=== PATIENT | female | born 1975 | race Two or more races ===

== ENCOUNTER 2020-11-03 15:48 | Emergency (ER) | payer OTHER ==
[~2020-11-03] VITALS: Ht 157.5 cm; Wt 52.2 kg
[2020-11-03] MEDS ORDERED: CANDESARTAN CILE8 M1 PO (16:13)
[2020-11-03] MEDS ORDERED: LEVOTHYROXINE25 MCG PO (16:13)
[2020-11-03] MEDS ORDERED: BUPROPION HCL200 M1 PO (16:14)
[2020-11-03] MEDS ORDERED: CRESTOR10 MG PO (16:14)
[2020-11-03] MEDS ORDERED: LOESTRIN FE 1.1 EACH (16:14)
[2020-11-03] MEDS ORDERED: TOPROL XL25 M1 PO (16:14)
== END 2020-11-03 20:08 | disposition home or self-care (01) ==
LOC: ER 15:48
DX: G43.809 Other migraine, not intractable, without status migrainosus (principal); R42 Dizziness and giddiness; Z03.818 Encounter for observation for suspected exposure to other biological agents ruled out

== ENCOUNTER 2020-11-04 07:13 | Outpatient (CLI) | payer OTHER ==
[~2020-11-04 07:13] MED LIST: BUPROPION HCL200 M1 PO; CANDESARTAN CILE8 M1 PO; CRESTOR10 MG PO; LEVOTHYROXINE25 MCG PO; LOESTRIN FE 1.1 EACH; TOPROL XL25 M1 PO
== END 2020-11-04 07:31 | disposition home or self-care (01) ==
LOC: MRI 07:13
PROVIDERS: ATTEND General Practice
DX: G93.89 Other specified disorders of brain (principal)
CPT/HCPCS: 70551

== ENCOUNTER 2021-03-01 09:40 | Emergency (ER) | payer OTHER ==
[~2021-03-01] VITALS: Ht 165.1 cm; Wt 54.9 kg
[2021-03-01] MEDS ORDERED: SYNTHROID50 MCG PO (10:05)
[2021-03-01] MEDS ORDERED: VOLTAREN100 GM TP (10:05)
[2021-03-01] MEDS ORDERED: CLIMARA1 EAC1 TD (10:06)
[2021-03-01] MEDS ORDERED: ZETIA10 MG PO (10:06)
== END 2021-03-01 16:30 | disposition home or self-care (01) ==
LOC: ER 09:40
DX: R60.0 Localized edema (principal)

== ENCOUNTER 2025-08-24 09:56 | Emergency (ER) | payer OTHER ==
[~2025-08-24] VITALS: Ht 152.4 cm; Wt 57.6 kg
[~2025-08-24 09:56] MED LIST changes: +CLIMARA1 EAC1 TD; +SYNTHROID50 MCG PO; +VOLTAREN100 GM TP; +ZETIA10 MG PO
[2025-08-24] MEDS ORDERED: TALTZ SYRI20 MG/0.25 (10:15)
[2025-08-24] MEDS ORDERED: CEFTRIAXONE SODIUM 1,000 MG VIAL IM ONE (11:00)
[2025-08-24] MEDS ORDERED: TETRACAINE HCL 20 DR/ML DROPS OP ONE (11:00)
[2025-08-24] MEDS ORDERED: KETOROLAC TROMETHAMINE 30 MG VIAL IM ONE (11:00)
[2025-08-24] MEDS ORDERED: KETOROLAC TROMETHAMINE 30 MG VIAL ONE (11:30)
[2025-08-24] MEDS ORDERED: CEFTRIAXONE SODIUM 1,000 MG VIAL ONE (11:31)
[2025-08-24] MEDS ORDERED: LIDOCAINE HCL 1% 10ML VIAL ONE (11:32)
[2025-08-24] MEDS ORDERED: CIPROFLOX-DEXA7.5 ML OT (12:21)
[2025-08-24] MEDS ORDERED: IBU600 MG PO (12:21)
[2025-08-24] MEDS ORDERED: AMOX-CLAV 875-1 EACH PO (12:21)
== END 2025-08-24 12:46 | disposition home or self-care (01) ==
LOC: ER 09:57
DX: H60.8X2 Other otitis externa, left ear (principal); H66.002 Acute suppurative otitis media without spontaneous rupture of ear drum, left ear